=== PATIENT | female | born 1960 | race African-American/Black ===

== ENCOUNTER 2025-01-10 11:24 | Emergency (ER) | payer MEDICARE, OTHER ==
[~2025-01-10] VITALS: Ht 160 cm; Wt 105.2 kg
[2025-01-10 13:18] VITALS: TEMP 97.1
[2025-01-10] MEDS ORDERED: ISOVUE-370 76% 100 ML VIAL As Ordered ONE (17:00)
[2025-01-10 17:10] LABS: BASO # 0.0 10^3/uL (0.0-0.2); BASO % 0.4 % (0.0-1.0); EOS # 0.1 10^3/uL (0.0-0.5); EOS % 3.0 % (0.0-3.0); KETONE, URINE AUTO RFX NEGATIVE (NEGATIVE); LEUKOCYTE ESTERASE UR AUTO RFX 2+ (NEGATIVE); LYMPH # 1.3 10^3/uL (1.5-5.0); LYMPH % 27.4 % (24.0-44.0); MONO # 0.4 10^3/uL (0.0-0.8); MONO % 9.5 % (2.0-8.0); MUCUS, URINE RFX SMALL (NEGATIVE); NEUTROPHILS # 2.8 10^3/uL (1.5-8.5); NEUTROPHILS % 59.5 % (36.0-66.0); NITRITE, URINE AUTO RFX NEGATIVE (NEGATIVE); PLATELET COUNT, AUTOMATED 170 10^3/uL (150-450); RBC, URINE AUTO RFX 1 /HPF (0-3); SQUAM EPITHELIAL CELL UR AURFX 8 /HPF (0-6); WBC, URINE AUTO RFX 3 /HPF (0-3)
[2025-01-10 17:24] LABS: ALT/SGPT 27.0 U/L (7.0-40); AST/SGOT 33.0 U/L (<34)
[2025-01-10] MEDS ORDERED: PROPRANOLOL 20 MG TAB PO ONE (18:50)
[2025-01-10 19:14] VITALS: BP 185/100
[2025-01-10] MEDS: PROPRANOLOL 80MG LA CAP PO ONE (19:14)
[2025-01-10 19:30] VITALS: O2SAT 98
[2025-01-10] MEDS ORDERED: KETO-204 PO (19:31)
[2025-01-10] MEDS: CYCLOBENZAPRINE 10 MG TABLET PO ONE (19:38)
[2025-01-10 19:41] VITALS: BP 196/97
== END 2025-01-10 19:53 | disposition home or self-care (01) ==
LOC: M ED 11:24
DX: R10.9 Unspecified abdominal pain (principal); R91.1 Solitary pulmonary nodule; K76.89 Other specified diseases of liver; M79.7 Fibromyalgia; Z79.2 Long term (current) use of antibiotics
CPT/HCPCS: 36415; 71260; 74177; 80047; 80076; 81001; 83605; 83690; 85025; 87086; 99284; Q9967